=== PATIENT | female | born 1945 | race Caucasian/White ===

== ENCOUNTER 2023-11-03 06:39 | Inpatient (IN) ==
--- NOTE | 2023-02-20 10:20 | PAT Medication Instructions ---
Medication Instructions Date of Service February 20, 2023 Home Medications ascorbic acid (vitamin C) 500 mg tablet (Vitamin C) 500 mg PO QAM aspirin 81 mg capsule 81 mg PO QAM carvedilol 6.25 mg tablet 6.25 mg PO BID ferrous sulfate 325 mg (65 mg iron) tablet (iron) 325 mg PO BID furosemide 20 mg tablet 20 mg PO BID glimepiride 4 mg tablet 2 mg PO QAM omeprazole 40 mg capsule,delayed release 40 mg PO DAILY PRN simvastatin 20 mg tablet 20 mg PO QAM clopidogrel 75 mg tablet 75 mg PO QAM Continue as directed omeprazole 40 mg capsule,delayed release 40 mg PO DAILY PRN(if needed) ASK your prescriber and surgeon aspirin 81 mg capsule 81 mg PO QAM clopidogrel 75 mg tablet 75 mg PO QAM DO NOT take the morning of surgery ascorbic acid (vitamin C) 500 mg tablet (Vitamin C) 500 mg PO QAM ferrous sulfate 325 mg (65 mg iron) tablet (iron) 325 mg PO BID furosemide 20 mg tablet 20 mg PO BID glimepiride 4 mg tablet 2 mg PO QAM Take morning of surgery With a small sip of water, OTHERWISE NOTHING TO EAT OR DRINK AFTER MIDNIGHT: carvedilol 6.25 mg tablet 6.25 mg PO BID simvastatin 20 mg tablet 20 mg PO QAM Take evening before surgery carvedilol 6.25 mg tablet 6.25 mg PO BID ferrous sulfate 325 mg (65 mg iron) tablet (iron) 325 mg PO BID furosemide 20 mg tablet 20 mg PO BID Other Notes If you have any questions please call us at [phone] or [phone] or [phone] or [phone]
--- NOTE | 2023-02-25 08:37 | Anesthesiology Consultation ---
Date of Service February 25, 2023 Assessment & Plan (1) Encounter for pre-operative examination: Plan - surgeon's office notified of anemia status H&H: 09/09 and new bifascicular block: to surgeon's determination on these especially pre-op anemia. - Case including new bifascicular block, LV outflow tract obstruction, high cardiac risk per cardiology 02/24/23 form and bilateral severe carotid disease discussed in detail with Dr. Rogers who advised patient is acceptable to proceed as planned at [facility] without further evaluation or testing from his standpoint. - check BSG and CBC with diff STAT am DOS. - left arm restriction. - difficult IV access. - cardiology clearance 02/24/23: "...moderate to high risk..." - cardiology office note 01/27/23: "...cardiac follow-up...to undergo a CTA of her carotids...blood pressure remains high today I am increasing her carvedilol to 12. 5mg twice daily...last creatinine was 2.0 and her hemoglobin although she remains significantly anemic this has been stable at 9...I anticipate that she is going to need carotid surgery...edema that she had previously has improved since we increased her Lasix to 40 mg...anticipate that she is going to need either a catheter-based procedure for her carotids or a carotid endarterectomy...no chest discomfort or heaviness...renal insufficiency creat inine 2.3 with a GFR of 21...anemia which is not currently explained but she has had 2 sets of transfusions in June and again this past November for hemoglobin of only 7...colonoscopy back in the spring which was negative for a source of bleeding however...part of her mitral valve apparatus which is heavily calcified and immobile and is obstructing the LV outflow tract to some degree...severity of the mitral stenosis is probably moderate...heavy aortic valve calcification but the aortic valve peak velocities are about 3 m/s which argues against significant aortic stenosis also more likely mild aortic stenosis...disease is severe bilaterally...stopped her metformin back in November...suspect that she has primarily diastolic heart failure given the normal LV EF...recommending that she stay on her current dose of Lasix since it has not deteriorated her renal function and we will increase the dose of her beta fede...will see her back again in 2 weeks to reassess her progress...ideally I would like to have her on dual antiplatelet however with her ongoing anemia I am not sure that we should do this as this time...we will review with vascular surgery the issue of her bilateral carotid disease...unfortunately this is not an ideal situation...would not recommend that she undergo cardiac catheterization at this time because of the excess dye load...would not do a Lexiscan on her. Unfortunately she is going to have to assume the risk of any upcoming surgery...done my best to optimize her medically with beta fede and diuretics..." Chart Review Chart Review: Acceptable Risk for Surgery and Patient seen in Pre Admission Testing Teaching & Discussion Pre-Anesthesia Teaching/Discussion Notes: Instructed NPO after midnight before surgery, except medications with 15 cc of water. Medication instructions provided according to the PAT guidelines. History Surgery Operation Date: 03/03/23 08:00 Proposed Procedures p Right Transcarotid Artery Revascularization - Maulik Manzo MD Height/Weight Height: 5 ft 3 in Weight: 75.9 kg Allergies Allergy/AdvReac Type Severity Reaction Status Date / Time cefadroxil Allergy Gastrointestinal Verified 02/20/23 07:45 Upset ciprofloxacin [From Cipro] Allergy hives, Verified 02/20/23 07:45 shortness of breath cortisone Allergy passed out Verified 02/20/23 07:45 digoxin Allergy confusion, Verified 02/20/23 07:45 light headed Iodinated Contrast Media Allergy Gastrointestinal Verified 02/20/23 07:45 Upset lisinopril Allergy confusion, Verified 02/20/23 07:45 light headed silver Allergy Rash Verified 02/20/23 08:08 Sulfa (Sulfonamide Allergy makes her Verified 02/20/23 07:45 Antibiotics) anxious Medications Home Medications Medication Instructions Recorded Confirmed Last Taken ascorbic acid (vitamin C) 500 mg 500 mg PO QAM 02/10/23 02/20/23 Unknown tablet (Vitamin C) aspirin 81 mg capsule 81 mg PO QAM 02/10/23 02/20/23 Unknown carvedilol 6.25 mg tablet 6.25 mg PO BID 02/10/23 02/20/23 Unknown ferrous sulfate 325 mg (65 mg 325 mg PO BID 02/10/23 02/20/23 Unknown iron) tablet (iron) furosemide 20 mg tablet 20 mg PO BID 02/10/23 02/20/23 Unknown glimepiride 4 mg tablet 2 mg PO QAM 02/10/23 02/20/23 Unknown omeprazole 40 mg capsule,delayed 40 mg PO DAILY PRN Acid Reflux 02/10/23 02/20/23 Unknown release simvastatin 20 mg tablet 20 mg PO QAM 02/10/23 02/20/23 Unknown clopidogrel 75 mg tablet 75 mg PO QAM 02/20/23 02/20/23 Unknown Past Medical History Medical History (Updated 02/25/23 @ 11:04 by Sherin Montoya PA-C) Left ventricular outflow tract obstruction Pulmonary hypertension RVSP 44 mmHg Needle phobia Bifascicular block noted on 02/25/23 EKG Renal insufficiency Cr improved since 01/2023 cardio note Syncope hx, last episode 11/2022 attributed to severe anemia per pt-denies additional episodes since transfusion Heart failure EF 70-75% Type 2 diabetes mellitus NIDDM History of blood transfusion 11/2022 Tricuspid regurgitation moderate Severe mitral valve stenosis Aortic stenosis moderate (MALINI 1.5 cm2, mean systolic gradient 19 mmHg); follows with Dr. Cornelius in [place] History of skin cancer 2018, removed from under right side of jaw History of left shoulder fracture 2015, still has "very" limited mobility in this arm/shoulder, no sx to correct-just immobilization Limb alert care status left arm Hx of breast cancer left, dx 2012, s/p surgery + 30 days xrt Hypertension stable per pt Anemia Hgb 9, unknown cause of anemia per cardio records, 7 on pre-op labs Hyperlipidemia GERD (gastroesophageal reflux disease) controlled, stable per pt Patient denies h/o stroke, seizures, heart attack, heart failure, or blood clots/DVTs/PEs. Exercise / Class Metabolic Activity II 4-5 Yardwork/Stairs/Walk up hill (denies chest discomfort or shortness of breath with 1 FOS) Past Surgical History Surgical History Slow to wake up after anesthesia Hx of tooth extraction Hx of colonoscopy History of cardiac cath 2012- no stents Hx of exploratory laparotomy age 21, for removal benign mass and appendix Hx of bilateral cataract extraction History of mastectomy left breast, w/removal 9 lymph nodes; left arm limb restriction Past Anesthesia History Other (slow to wake; cousins also slow to wake) History of PONV No Hx of PONV and No Hx of Motion Sickness Social History Smoking Status: Never smoker Do You Dip or Chew Tobacco: No Hx Alcohol Use: No Hx Substance Use: No substance use type: does not use Review of Systems Snoring, denies witnessed apneas. Patient denies chest pain, shortness of breath, dyspnea on exertion, fever, chills, cough, wheezing, or palpitations. Physical Exam Vital Signs Vitals BP 152/66 P 72 TEMP 97.9 SP02 100% on RA RESP 17 Physical Patient resting comfortably in chair in no acute distress, alert and oriented, responding appropriately throughout visit Full cervical extension range of motion without pain TMD 3.5 finger breadths Mallampati Score 3 Dentition: edentulous Lungs: normal respiratory effort. Good air movement, clear throughout to auscultation, no adventitious breath sounds Cardiac: regular rate and rhythm, 3/6 systolic murmur Lab Results Anesthesia Preop Results Results Anesthesia Widget: WBC 9.15 K/ul (4.8-10.8) 02/25/23 Hgb 7.6 g/dl (12.0-16.0) L 02/25/23 Hct 25.1 % (37.0-47.0) L 02/25/23 Plt 399 K/uL (130-400) 02/25/23 Na 140 mmol/L (136-145) 02/25/23 K 3.5 mmol/L (3.5-5.1) 02/25/23 Cl 103 mmol/L (98-107) 02/25/23 CO2 31 mmol/L (21-32) 02/25/23 BUN 29 mg/dl (6-23) H 02/25/23 Creat 1.77 mg/dl (0.6-1.2) H 02/25/23 Glucose Level 118 mg/dl (70-99(Fasting)) H 02/25/23 PT 11.1 Seconds (9.0-12.0) 02/25/23 PTT 24 Seconds (21-31) 02/25/23 INR 1.0 (0.9-1.1) 02/25/23 HA1c 6.4 % (4.5-5.6) H 02/25/23 Blood Type A Positive 02/25/23 Antibody Screen NEGATIVE 02/25/23 Testing Electrocardiogram Date: 02/25/23 Sinus rhythm with premature atrial complexes, rate 77 bpm RBBB Left anterior fascicular block bifascicular block Chest X-Ray Date: 02/25/23 Nonspecific interstitial thickening is likely chronic. Foci of parenchymal s carring are seen throughout both lungs. No airspace consolidation typical for pneumonia or pleural effusion is identified. There is no pneumothorax. The skeletal structures are osteopenic. There is chronic deformity of the left shoulder. Degenerative change is seen in the spine. Surgical clips are noted in the left axilla. IMPRESSION: Cardiomegaly with no active disease in the chest. Echocardiogram Date: 12/30/22 EF 70-75% Mild cLVH Near cavity obliteration in systole Normal LV wall motion Outflow tract shows mild obstruction and a velocity flow profile with aliasing and increased velocity, suggestive of obstruction. Mildly dilated RV RVSP 44 mmHg Severely calcified mitral valve annulus, leaflets are mildly calcified There is a dentist which appears to be part of the mitral valve sub apparatus that is heavily calcified and projects into the LV outflow tract gradient. This density is immobile and does not move. The findings are consistent with moderate to severe stenosis. There is moderate regurgitation Moderate aortic stenosis (MALINI 1.5 cm2, mean systolic gradient 19 mmHg) Moderate tricuspid regurgitation Other Testing Neck CTA 02/10/23 1. Study degraded by motion artifact. 2. Atherosclerosis of the carotid bulbs and proximal cervical segments of the internal carotid arteries results in high-grade stenosis bilaterally, right greater than left.
[~2023-11-03 06:39] MED LIST: CLINDAMYCIN/D5W 900 MG/50 ML BAG IV SCH; LACTATED RINGER'S 1,000 ML BAG IV SCH; SODIUM CHLORIDE 0.9% 250 ML IV PRN
--- OUTSIDE RECORDS SUMMARY | 2023-11-03 06:55 | External Medical Summary | Continuity of Care Document ---
Author Name Unknown Organization [facility] [address] [facility] Address [address] [place], [place] [id number] Care Team Providers Care Refining Engineer Name Role Phone London Garrison Primary Care Physician [phone] [id number] Date(s): 10/21/23 - 10/21/23 [facility] [address], [address] [place] [phone] Encounter Diagnosis Preop cardiovascular exam(Discharge Diagnosis) - 10/21/23 Aortic valve stenosis(Discharge Diagnosis) - 10/21/23 Bilateral carotid artery stenosis(Discharge Diagnosis) - 10/21/23 Diastolic heart failure(Discharge Diagnosis) - 10/21/23 Anemia(Discharge Diagnosis) - 10/21/23 Mitral valve stenosis(Discharge Diagnosis) - 10/21/23 Discharge Disposition: Home or Self Care Attending Physician: DO Cornelius Michelle L Allergies, Adverse Reactions, Alerts Substance Criticality Severity Reaction Reaction Severity Status ciprofloxacin Rash Dyspnea Active cefadroxil Dizziness Active contrast media (iodine-based) SARINA - acute kidney injury Gastrointestinal upset Active digoxin Photophobia Dizziness Active cortisone Syncope Active lisinopril unknown Active sulfa drugs Insomnia Shaking Active Assessment and Plan Extracted from: Title:Cardiology Office Visit Note Author:DO Cornelius Michelle L Date:10/21/23 1.Preop cardiovascular exa m 2.Aortic valve stenosis Moderate with heavy mitral annular calcification 3.Bilateral carotid artery stenosis 4.Diastolic heart failure 5.Anemia 6.Mitral valve stenosis On the basis of heavy mitral annular calcification Her cardiovascular risk is considered to be intermediateto perhaps high.Her overall EF on the last ECHO from Dec 2022 was 70% with moderate and heavy MAC with moderate MS. She has not had angina. Her ECG today shows RBBB with LAHB similar to her prior ECG. I will see her back in November for a repeat ECHO.I will also be available around the time of her surgeryper your request. Continue aspirin and beta-fede perioperatively. Medications Aspir 81 oral delayed release tablet Start: 01/22/23 9:26:00 AM EST, 1 tab, PO, Daily Start Date: 01/22/23 Status: Ordered Brilinta (ticagrelor) 90 mg oral tablet Start: 10/12/23 3:54:00 PM EDT, 1 tab, PO, bid, Disp# 60 tab, Refills: 11, [facility] Start Date: 10/12/23 Status: Ordered carvedilol 12.5 mg oral tablet 1 tab, PO, bid, TAKE ONE TABLET BY MOUTH TWICE DAILY Start Date: 10/21/23 Status: Ordered furosemide 40 mg oral tablet 1 tab, PO, Daily, TAKE ONE TABLET BY MOUTH DAILY Start Date: 10/21/23 Status: Ordered glimepiride 4 mg oral tablet Start: 01/22/23 9:25:00 AM EST, 0.5 tab, PO, Daily Start Date: 01/22/23 Status: Ordered Mucomyst-20 for nebulization Start: 01/22/23 9:58:00 AM EST, See Instructions, Disp# 12 mL, Refills: 0, 600 mg PO Take BID starting at 6pm evening before procedure/study., Note to Pharmacy: Dispense 4 doses of 600 mg, [facility]acy[facility] Start Date: 01/22/23 Status: Ordered omeprazole 40 mg oral delayed release capsule Start: 01/22/23 9:26:00 AM EST, 1 cap, PO, Daily, as needed Start Date: 01/22/23 Status: Ordered Procrit 10,000 units/mL injectable solution Start: 10/21/23 10:19:00 AM EDT, See Instructions, unsure of dose. subQ q7days Start Date: 10/21/23 Status: Ordered simvastatin 20 mg oral tablet 1 tab, PO, qPM, TAKE ONE TABLET BY MOUTH DAILY Start Date: 01/22/23 Status: Ordered Vitamin C 500 mg oral capsule Start: 01/22/23 9:26:00 AM EST, 1 cap, PO, Daily Start Date: 01/22/23 Status: Ordered Mental Status 10/21/23 Barriers to Learning one year None evide nt Mandatory Health Literacy Documentation Yes Health Literacy Communication Barriers N ever Primary Language Bermudian Problem List Condition Confirmation Course Effective Dates Status H ealth Status Informant Anemia Confirmed Active Aortic valve stenosis Confirmed Active Bilateral carotid artery stenosis Confirmed Active Diastolic heart failure Confirmed Active Hypertension Confirmed Active Mitral valve stenosis Confirmed Active Renal insufficiency Confirmed Active RBBB Confirmed Active Type 2 diabetes mellitus Confirmed Active Diagnosis Diagnosis Type Effective Dates Health Status Clinical Service Informant Bilateral carotid artery stenosis Discharge Diagnosis 10/21/23 Non-Specified Anemia Discharge Diagnosis 10/21/23 Non-Specified Mitral valve stenosis Discharge Diagnosis 10/21/23 Non-Specified Preop cardiovascular exam Discharge Diagnosis 10/21/23 Non-Specified Diastolic heart failure Discharge Diagnosis 10/21/23 Non-Specified Aortic valve stenosis Discharge Diagnosis 10/21/23 Non-Specified Vital Signs Most recent to oldest [Reference Range]: 1 Patient Weight 76.5 kg (10/21/23 10:31 AM) Heart Rate 88 bpm (10/21/23 10:31 AM) Respiratory Rate 18 br/min (10/21/23 10:31 AM) Blood Pressure 138/58mmHg (10/21/23 10:31 AM) Cuff Pulse Pressure 80 mmHg (10/21/23 10:31 AM) Social History Social History Type Response Smoking Status Never smoked cigaret debra Sex Female Sex Representation Female (finding) Cardiology * Contributor_system, [id number]: VERIFY, PERFORM Event Display: EKG Authored Date: Please click on link to see image. Cardiology Outpatient Note * DO Cornelius Michelle L: PERFORM Event Display: Cardiology Outpt Note Authored Date: Primary Care Provider MD Bladimir, London Smith Referring Provider Dr. Maulik Manzo Reason for Consultation Preop cardiovascular clearance Chief Complaint pt here for cardiology visit prior to tcar (11/02). denies chest pain or swelling. History of Present Illness [place] a78 yearoldEmilie is here forpreop cardiac evaluation for bilateral severe carotid disease. I started seeing Eleanorbrendan a year agofor cardiac evaluationin December2022 where she was found to havesevere carotid disease. We have had difficultygetting her cleared due to her multiplecomorbid medical conditions includingsevere iron deficiencywithsevere anemiaas well aschronic renal insufficiency. She is a longstanding diabetic witha creatinine of 2.3her previous GFR was estimated to be at 21her most recent echo shows overallnormal LV systolic function however she has a moderate amount ofaortic stenosis as well as mitral stenosis on the basis of severemitral annular calcification. Shehas undergoneGI evaluation with colonoscopyto look for source of bleeding however there was no etiology toin the severe anemia. Thpotentially high risk candidate. . She reports having had aheart murmur for more than 20 yearsbut has never hadan echo up until the 1 we did in 2022. She has aremote history of breast cancer with mastectomy back in 2013 [id number] radiation treatments after hersurgery. Amazingly she denies chest discomfort heaviness pressure tightness or shortness of breath with herusual activities. She is finally scheduled toundergo her surgical procedure with Dr. Templeton 17. From a cardiovascular standpoint she is considered to berumen intermediate to moderately high risk candidate. Unfortunatelygiven hersignificant renal insufficiencyas well as severe bilateral carotid diseasediagnostic testing at this point is extremely limited. Because sandeepoes not have symptomsshe is being clearedfrom a cardiovascular standpointat an intermediate tohigh risk candidate forTCAR.She understands that hermultiple comorbid medical conditionswouldpreclude further cardiac testing at this time particularly given her renal insufficiencyandiron deficiency anemia. Her EKG was done today and there are no new changes. She was given a copy of her EKGto take to the hospital for her otherpreopblood work that is scheduled. I will follow-up with her after her surgery. I anticipate that she will have her right carotid doneafter she has recovered from the leftcarotid.I will also be availablearound the time of her surgery if need be for anyquestions or problems. She was instructed to stay on her aspirin as wellas her carvedilol perioperatively. She should not stop either of these medications. Review of Systems General: no fevers, chills, weight loss of gain HEENT: no changes in vision or hearing; no recent falls or head trauma Cardiac: No other symptoms other than reported in HPI Pulmonary: No symptoms other than reported in HPI Abdomen: No changes in bowel habits, nausea, vomiting, no BRBPR : no changes in urine frequency Extremities: no edema or claudication Physical Exam Vitals & Measurements HR:88(Monitored) RR:18 BP:138/58 SpO2:98% WT:76.5kg WT:76.500kg(Dosing) Patient is awake alert and oriented x3and in no acute distress HEENT:2+ carotid upstrokes, bilateral carotid bruits noted LUNGS:Clear to auscultation bilaterally no rales rhonchi or wheezing HEART:Regular rate and rhythmsystoliccrescendo decrescendo murmurA2 is still appreciated ABDOMEN:Soft nontender nondistended positive bowel sounds EXTREMITIES:No evidence of clubbing cyanosis or edema PSYCHIATRIC:Patients affect appeared appropriate EKG Normal sinus rhythm right bundle branch block left anterior hemiblock Assessment/Plan 1.Preop cardiovascular exam 2.Aortic valve stenosis Moderate with heavy mitral annular calcification 3.Bilateral carotid artery stenosis 4.Diastolic heart failure 5.Anemia 6.Mitral valve stenosis On the basis of heavy mitral annular calcification Her cardiovascular risk is considered to be intermediateto perhaps high.[facility] 70% with moderate and heavy MAC with moderate MS. She has not had angina. Her ECG today shows RBBB with LAHB similar to her prior ECG. I will see her back in November for a repeat ECHO.I will also be available around the time of her surgeryper your request. Continue aspirin and beta-fede perioperatively. Problem List/Past Medical History Ongoing Anemia Aortic valve stenosis Bilateral carotid artery stenosis Diastolic heart failure Hypertension Mitral valve stenosis RBBB Renal insufficiency Type 2 diabetes mellitus Cardiac History Moderate aortic stenosis Heavy mitral annular calcificationwithsome degree of mitral stenosis Right bundle branch block left anterior hemiblock Medications acetylcysteine(Mucomyst-20 for nebulization), See Instructions ascorbic acid(Vitamin C 500 mg oral capsule), 500 mg= 1 cap, PO, Daily aspirin(Aspir 81 oral delayed release tablet), 81 mg= 1 tab, PO, Daily carvedilol(carvedilol 12.5 mg oral tablet), 12.5 mg= 1 tab, PO, bid epoetin amber(Procrit 10,000 units/mL injectable solution), See Instructions furosemide(furosemide 40 mg oral tablet), 40 mg= 1 tab, PO, Daily glimepiride(glimepiride 4 mg oral tablet), 2 mg= 0.5 tab, PO, Daily omeprazole(omeprazole 40 mg oral delayed release capsule), 40 mg= 1 cap, PO, Daily simvastatin(simvastatin 20 mg oral tablet), 20 mg= 1 tab, PO, qPM ticagrelor(Brilinta (ticagrelor) 90 mg oral tablet), 90 mg= 1 tab, PO, bid, 11 refills Allergies cefadroxilDizziness ciprofloxacinRash, Dyspnea contrast media (iodine-based)SARINA - acute kidney injury, Gastrointestinal upset cortisoneSyncope digoxinPhotophobia, Dizziness lisinoprilunknown sulfa drugsInsomnia, Shaking Social History Smoking Status Never smoked cigarettes Family History Cardiovascular disease: Mother and Father. Hypertension: Mother and Father. Health Status Family Member(s) Electronic Signature on File CC: London Garrison MD [address] [place] [id number] * CC: Maulik Manzo MD [address] [place] [address] Electronically Reviewed/Signed by: Chrissy Cornelius DO Author Signature Dt/Tm:10/21/2023 06:43 PM Division of General Cardiology MLS Patient Care team information Care Team Personnel Name: RAND Townsend Lynn Position: Physician Rn Utilization Management Um Exempt - Vasc Surg Member Role: Lifetime Relationship Address: [address] [place] [id number] [place] Name: MD Bladimir, London Smith Position: Referring Member Role: Primary Care Provider Address: [address] [place] [address] [place] [address]
[2023-11-03 07:23] LABS: Basophils # (auto) 0.09 K/uL (0.00-0.20); Basophils % (auto) 0.6 %; Eosinophils # (auto) 0.19 K/uL (0.00-0.50); Eosinophils % (auto) 1.2 %; Hematocrit (blood only) 34.5 % (37.0-47.0); Immature Granulocytes # (auto) 0.13 K/uL (0.01-0.20); Immature Granulocytes % (auto) 0.8 %; Lymphocytes # (auto) 2.52 K/uL (1.20-3.40); Lymphocytes % (auto) 15.5 %; Mean Corpuscular Hemoglobin 24.4 pg (25.0-34.0); Mean Corpuscular Volume 84.4 fL (80.0-100.0); Mean Platelet Volume 8.5 fL (9.4-12.4); Monocytes # (auto) 1.38 K/uL (0.11-0.59); Monocytes % (auto) 8.5 %; Neutrophils # (auto) 11.95 K/uL (1.40-6.50); Neutrophils % (auto) 73.4 %; Platelet Count 458 K/uL (130-400); RDW Coefficient of Variation 16.6 % (11.5-14.5); RDW Standard Deviation 50.5 fL (36.4-46.3); Red Blood Count 4.09 M/uL (4.20-5.40); White Blood Count 16.26 K/ul (4.8-10.8)
--- NOTE | 2023-11-03 07:40 | History & Physical Report ---
Date of Service November 03, 2023 History of Present Illness Primary Care Provider: London Garrison Chief Complaint rm#2 post CTA discussion regarding carotids Subjective Plan plan of seeing Lanre for follow-up. As you know she is a 78-year-old female who has severe stenosis of her bilateral internal carotid arteries. She is approximately 80% plus on the left and 90% plus on the right. She is asymptomatic from both lesions. She does have a chronic anemia and being worked up by hematology. She has had 6 transfusions this year. Her hemoglobin still lives in the 8 range. At that that level she is still asymptomatic. Objective Vitals & Measurements HR: 75 (Monitored) BP: 118/54 SpO2: 97% Physical Exam On exam today she is awake alert oriented x 3. She is in no apparent distress. Her blood pressure is 118/54. Her radial carotids are +2 bilaterally. Femorals are +2 bilaterally. She has good capillary refill Upper extremity with good blanching of the finger nailbeds. She is slightly on the pale side however her lip and conjunctiva are pink. Lungs are clear. Heart has a RRR. Abominal exam is benign. Neuro exam is intact. Diagnostic Results Ultrasound today shows both internal carotid arteries to be patent but severely stenotic. Assessment/Plan 1. Bilateral carotid artery stenosis We went over the risks options benefits of TCAR versus endarterectomy. These are documented in the consent form she is elected to go ahead with a TCAR due to the less risk of any bleeding from this procedure. He said being her hemoglobins are in the 8 range transfuse her 1 unit of blood preoperatively before her TCAR procedure. Patient and her understood the risks options benefits and agreed to go ahead with TCAR procedure. She will be seen by her costumed character entertainer for clearance prior to her surgical procedure. Thank you very much for letting us participate in the care of this patient. Thank you very much for letting us participate in the care of this patient. Sincerely, Rasheeda Manzo MD Attestation I have personally spent ___27__ minutes performing [id number] and gjj-[id number] activities on this date of service. Activities Include: _x_ review of the medical record _x_ obtaining a history __x physical exam/evaluation __ review labs __ review radiology reports _x_ counseling/educating patient/family/caregiver __ discussion/referral to other healthcare professional _x_ documenting care in the medical record __ independent interpretation of results __ communication of results to patient/family/caregiver __ coordination of care Signature Line Electronic Signature on File Maulik Manzo MD Author Signature Dt/Tm: 10/12/2023 04:09 PM Advertising Sales Agent Johan Ruelas [facility] [place] [address] [facility] [place], [address] [place] [address] EJS Result Type: .Outpt Ltr Date of Service: October 12, 2023 16:03 EDT Authorization Status: Final Subject: Follow Up Visit Author or Import Date: MD Manzo Eugene J on October 12, 2023 16:09 EDT Verified By: MD Manzo Eugene J on October 12, 2023 16:09 EDT Encounter info: [id number], [facility], Clinic, 10/12/2023 - 10/12/2023 Allergies Allergy/AdvReac Type Severity Reaction Status Date / Time cefadroxil Allergy Gastrointestinal Verified 11/03/23 07:29 Upset ciprofloxacin [From Cipro] Allergy hives, Verified 11/03/23 07:29 shortness of breath cortisone Allergy passed out Verified 11/03/23 07:29 digoxin Allergy confusion, Verified 11/03/23 07:29 light headed Iodinated Contrast Media Allergy Gastrointestinal Verified 11/03/23 07:29 Upset lisinopril Allergy confusion, Verified 11/03/23 07:29 light headed silver Allergy Rash Verified 11/03/23 07:29 Sulfa (Sulfonamide Allergy makes her Verified 11/03/23 07:29 Antibiotics) anxious Home Medications Medication Instructions Recorded Confirmed Type ascorbic acid (vitamin C) 500 mg 500 mg PO QAM 02/10/23 11/03/23 History tablet (Vitamin C) aspirin 81 mg capsule 81 mg PO QAM 02/10/23 11/03/23 History carvedilol 6.25 mg tablet 6.25 mg PO BID 02/10/23 11/03/23 History glimepiride 4 mg tablet 2 mg PO QAM 02/10/23 11/03/23 History omeprazole 40 mg capsule,delayed 40 mg PO DAILY PRN Acid Reflux 02/10/23 11/03/23 History release simvastatin 20 mg tablet 20 mg PO QAM 02/10/23 11/03/23 History Brilinta 1 dose PO UD 10/22/23 11/03/23 History furosemide 40 mg tablet (Lasix) 40 mg PO QAM 10/22/23 11/03/23 History Past Med/Surg History Problem List Encounter for pre-operative examination Medical History Aplastic anemia following with Dr. 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 Cornelius Renal insufficiency Cr improved since 01/2023 cardio note Syncope hx, last episode 11/2022 attributed to severe anemia per pt-denies additional episodes since transfusion Heart failure EF 70-75% Type 2 diabetes mellitus NIDDM History of blood transfusion 11/2022, most recent 06/2023 Tricuspid regurgitation moderate Severe mitral valve stenosis Aortic stenosis moderate (MALINI 1.5 cm2, mean systolic gradient 19 mmHg); follows with Dr. Cornelius in [place] History of skin cancer 2018, removed from under right side of jaw History of left shoulder fracture 2015, still has "very" limited mobility in this arm/shoulder, no sx to correct-just immobilization Limb alert care status left arm Hx of breast cancer left, dx 2012, s/p surgery + 30 days xrt Hypertension stable per pt Anemia Hgb 9.7, unknown cause of anemia per cardio records, 7 on pre-op labs -- following with Dr. Mckinley Hyperlipidemia GERD (gastroesophageal reflux disease) controlled, stable per pt Surgical History Slow to wake up after anesthesia Hx of tooth extraction Hx of colonoscopy History of cardiac cath 2012- no stents Hx of exploratory laparotomy age 21, for removal benign mass and appendix Hx of bilateral cataract extraction History of mastectomy left breast, w/removal 9 lymph nodes; left arm limb restriction Family History (Updated 10/22/23 @ 11:40 by Umu Hendricks RN) Sister Family history of reaction to anesthesia "slow to wake up" Family/Other Family history of reaction to anesthesia cousin - "slow to wake up" Social History Smoking Status: Never smoker Second Hand Exposure: No; Do You Dip or Chew Tobacco: No; Tobacco Cessation Education Requested by Patient: No Hx Alcohol Use: No Hx Substance Use: No Preferred Language: Malay Communication Ability: Effective Automotive Product Specialist Required: No Beliefs That Will Affect Care: None Current Living Situation: Significant Other Other Information That Helps Us Care for You: No Feels Safe at Home: Yes Safety Concerns: Feels Safe At This Time Assistive Devices: Denture - Upper, Denture - Lower and Glasses
--- NOTE | 2023-11-03 07:41 | History & Physical Bridge Note ---
Date of Service November 03, 2023 History & Physical Bridge Note I have examined the patient, reviewed the History & Physical and in the interval since the performance of the History & Physical I have noted the following changes of clinical significance: no changes noted
--- NOTE | 2023-11-03 07:43 | History & Physical Report ---
Date of Service November 03, 2023 Assessment & Plan (1) Carotid stenosis, bilateral: Plan: We went over the risks options benefits of TCAR versus endarterectomy. These are documented in the consent form she is elected to go ahead with a TCAR due to the less risk of any bleeding from this procedure. He said being her hemoglobins are in the 8 range transfuse her 1 unit of blood preoperatively before her TCAR procedure. Patient and her understood the risks options benefits and agreed to go ahead with TCAR procedure. History of Present Illness Chief Complaint: Bilateral carotid artery stenosis Primary Care Provider: London Garrison I had the pleasure of seeing Lanre for follow-up. As you know she is a 78-year-old female who has severe stenosis of her bilateral internal carotid arteries. She is approximately 80% plus on the left and 90% plus on the right. She is asymptomatic from both lesions. She does have a chronic anemia and being worked up by hematology. She has had 6 transfusions this year. Her hemoglobin still lives in the 8 range. At that that level she is still asymptomatic. Allergies Allergy/AdvReac Type Severity Reaction Status Date / Time cefadroxil Allergy Gastrointestinal Verified 11/03/23 07:29 Upset ciprofloxacin [From Cipro] Allergy hives, Verified 11/03/23 07:29 shortness of breath cortisone Allergy passed out Verified 11/03/23 07:29 digoxin Allergy confusion, Verified 11/03/23 07:29 light headed Iodinated Contrast Media Allergy Gastrointestinal Verified 11/03/23 07:29 Upset lisinopril Allergy confusion, Verified 11/03/23 07:29 light headed silver Allergy Rash Verified 11/03/23 07:29 Sulfa (Sulfonamide Allergy makes her Verified 11/03/23 07:29 Antibiotics) anxious Home Medications Medication Instructions Recorded Confirmed Type ascorbic acid (vitamin C) 500 mg 500 mg PO QAM 02/10/23 11/03/23 History tablet (Vitamin C) aspirin 81 mg capsule 81 mg PO QAM 02/10/23 11/03/23 History carvedilol 6.25 mg tablet 6.25 mg PO BID 02/10/23 11/03/23 History glimepiride 4 mg tablet 2 mg PO QAM 02/10/23 11/03/23 History omeprazole 40 mg capsule,delayed 40 mg PO DAILY PRN Acid Reflux 02/10/23 11/03/23 History release simvastatin 20 mg tablet 20 mg PO QAM 02/10/23 11/03/23 History Brilinta 1 dose PO UD 10/22/23 11/03/23 History furosemide 40 mg tablet (Lasix) 40 mg PO QAM 10/22/23 11/03/23 History Past Med/Surg History Problem List (Updated 11/03/23 @ 07:45 by Maulik Manzo MD) Carotid stenosis, bilateral Encounter for pre-operative examination Medical History Aplastic anemia following with Dr. 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 Cornelius Renal insufficiency Cr improved since 01/2023 cardio note Syncope hx, last episode 11/2022 attributed to severe anemia per pt-denies additional episodes since transfusion Heart failure EF 70-75% Type 2 diabetes mellitus NIDDM History of blood transfusion 11/2022, most recent 06/2023 Tricuspid regurgitation moderate Severe mitral valve stenosis Aortic stenosis moderate (MALINI 1.5 cm2, mean systolic gradient 19 mmHg); follows with Dr. Cornelius in [place] History of skin cancer 2018, removed from under right side of jaw History of left shoulder fracture 2015, still has "very" limited mobility in this arm/shoulder, no sx to correct-just immobilization Limb alert care status left arm Hx of breast cancer left, dx 2012, s/p surgery + 30 days xrt Hypertension stable per pt Anemia Hgb 9.7, unknown cause of anemia per cardio records, 7 on pre-op labs -- following with Dr. Mckinley Hyperlipidemia GERD (gastroesophageal reflux disease) controlled, stable per pt Surgical History Slow to wake up after anesthesia Hx of tooth extraction Hx of colonoscopy History of cardiac cath 2012- no stents Hx of exploratory laparotomy age 21, for removal benign mass and appendix Hx of bilateral cataract extraction History of mastectomy left breast, w/removal 9 lymph nodes; left arm limb restriction Family History Sister Family history of reaction to anesthesia "slow to wake up" Family/Other Family history of reaction to anesthesia cousin - "slow to wake up" Social History Smoking Status: Never smoker Second Hand Exposure: No; Do You Dip or Chew Tobacco: No; Tobacco Cessation Education Requested by Patient: No Hx Alcohol Use: No Hx Substance Use: No Preferred Language: Romansh Communication Ability: Effective Meals On Wheels Driver Required: No Beliefs That Will Affect Care: None Current Living Situation: Significant Other Other Information That Helps Us Care for You: No Feels Safe at Home: Yes Safety Concerns: Feels Safe At This Time Assistive Devices: Denture - Upper, Denture - Lower and Glasses Review of Systems All systems reviewed & are unremarkable except as noted in HPI & below Physical Exam Physical Exam: On exam today she is awake alert oriented x 3. She is in no apparent distress. Her blood pressure is 118/54. Her radial carotids are +2 bilaterally. Femorals are +2 bilaterally. She has good capillary refill. Upper extremity with good blanching of the finger nailbeds. She is slightly on the pale side however her lip and conjunctiva are pink. Lungs are clear. Heart has a RRR. Abominal exam is benign. Neuro exam is intact. Code Status & VTE Plan VTE Prophylaxis Plan VTE Prophylaxis will be ordered: Yes
[2023-11-03] MEDS: LACTATED RINGER'S 1,000 ML BAG IV SCH (07:58)
[2023-11-03] MEDS ORDERED: ePHEDrine sulfate 50 MG/ML AMP IV PRN (09:22)
[2023-11-03] MEDS ORDERED: HYDROmorphone INJ 1 MG/ML SYRINGE IV PRN (09:22)
[2023-11-03] MEDS ORDERED: fentaNYL citrate PF 100 MCG/2 ML VIAL IV PRN (09:22)
[2023-11-03] MEDS ORDERED: ATROPINE SULFATE 0.1 MG/ML 10ML SYR IV PRN (09:22)
[2023-11-03] MEDS ORDERED: ONDANSETRON INJ 2 MG/ML 2 ML VIAL IV PRN (09:22)
[2023-11-03] MEDS ORDERED: fentaNYL citrate PF 100 MCG/2 ML VIAL ONE ×2 (09:27→10:35)
[2023-11-03] MEDS: HYDROCORTISONE SOD 100 MG in SYRINGE 0 ML IV STA (10:48)
[2023-11-03] MEDS: HYDROCORTISONE SOD SUCCINATE 100 MG/2 ML VIAL ONE (10:48)
[2023-11-03] MEDS: CLINDAMYCIN/D5W 900 MG/50 ML BAG IV SCH (10:58)
[2023-11-03] MEDS ORDERED: PROPOFOL IV EMULSION 10 MG/ML 20 ML VIAL IV ONE (11:26)
[2023-11-03] MEDS ORDERED: ROCURONIUM BROMIDE 10 MG/ML 5 ML VIAL IV ONE (11:26)
[2023-11-03] MEDS ORDERED: ONDANSETRON INJ 2 MG/ML 2 ML VIAL ONE (11:27)
[2023-11-03] MEDS ORDERED: GLYCOPYRROLATE 0.2 MG/ML VIAL ONE (11:27)
[2023-11-03] MEDS ORDERED: PHENYLEPHRINE HCL 10 MG/ML VIAL ONE (11:27)
[2023-11-03] MEDS ORDERED: ePHEDrine sulfate 50 MG/5 ML SYR ONE (11:27)
--- NOTE | 2023-11-03 11:40 | Anesthesia Procedure Note ---
Anesthesia Procedure Note Arterial Line Note Patient medical history, medications, allergies and vitals reviewed. Date of procedure: 11/03/23 Consent: Risk / Benefits Reviewed With: PT / POA / Parent / Guardian, Accepts Plan, Informed Consent Obtained and All Questions Answered Monitors attached: Blood Pressure, CO2, EKG and Pulse Oximetry Time out completed: Yes Premedication: Fentanyl (mcg) (100) Laterality: Right Location: Brachial (attempted radial first) Hand hygeine: Soap and water and Alcohol based hand rub Equipment/Supplies: Cap, Mask and Sterile gloves Skin prep: Chloraprep Local medication: 1% Lidocaine (ml) Ultrasound used: Yes US equipment and supplies: Sterile Gel and Sterile Probe Cover Attempts: Multiple Procedure Summary: 20 gauge angiocath advanced until return of bright red blood. Catheter threaded using seldinger technique with return of pulsatile, bright red blood. Catheter secured with tape and covered with occlusive dressing. Waveform consistent with correct arterial placement. After placement, normal perfusion was observed distal to the site of catheter placement. Post-Procedure: Pt hemodynamically stable, Pt tolerates well and No complication Anesthesia Charges Arterial Line A Line Charges: 75825 Insert Art line Samp/Mon/Pruett
[2023-11-03] MEDS ORDERED: ePHEDrine sulfate 50 MG/ML AMP ONE (11:55)
[2023-11-03] MEDS ORDERED: HEPARIN SOD (PORCINE) 1000 UNIT/ML ONE (11:58)
[2023-11-03] MEDS ORDERED: PROTAMINE SULFATE 10 MG/ML 5 ML VIAL IV ONE (11:58)
[2023-11-03] MEDS ORDERED: SUGAMMADEX SODIUM 200 MG/2 ML VIAL IV ONE (12:06)
--- NOTE | 2023-11-03 12:07 | Post Operative Brief Note ---
Immediate Post Op Note Date of Surgery November 03, 2023 Pre & Post Diagnosis Operation Date: 11/03/23 10:10 Pre-Op Diagnosis: Bilateral Carotid stenosis Post-Op Diagnosis: Bilateral Carotid stenosis I identified the patient and participated in the time-out.: Yes Procedure Operation Date: 11/03/23 10:10 Actual Procedures p Right Transcarotid Artery Revascularization, ultrasound left common femoral vein (Right) - Maulik Manzo MD Surgeon Maulik Manzo MD Sales Department Manager MD Kristian GonzalesMinarchick,PAC Estimated Blood Loss 10 Findings Consistent with Post-Op Diagnosis Anesthesia Type General Complications none Disposition Accompanied Patient To Recovery: No Disposition: Recovery Room
--- NOTE | 2023-11-03 12:21 | Operative Report ---
Post Operative Report Pre & Post Diagnosis Operation Date: 11/03/23 10:10 Pre-Op Diagnosis: Bilateral Carotid stenosis Asymptomatic, pre-occlusive right carotid artery stenosis Post-Op Diagnosis: Bilateral Carotid stenosis Asymptomatic, pre-occlusive right carotid artery stenosis I identified the patient and participated in the time-out.: Yes Procedure Operation Date: 11/03/23 10:10 Actual Procedures p Right Transcarotid Artery Revascularization, ultrasound left common femoral vein (Right) - Maulik Manzo MD Surgeon Maulik Manzo MD Fruit And Vegetable Classer MD Janet; Elena Townsend,VERO Estimated Blood Loss 10 Findings See Below Patient had severe, almost occlusive right carotid artery stenosis with a diminutive right external carotid artery. We were able to cross the lesion and there was significant improvement after balloon angioplasty and stent placement. There was good wall apposition of the stent with improved blood flow and no areas of significant stenosis visualized on completion angiogram. Specimens None Drains None Anesthesia Type General Complications None Disposition Accompanied Patient To Recovery: Yes Indications 78 year old female with history of asymptomatic, near occlusive right carotid artery stenosis who presented for transcarotid artery revascularization (TCAR). After discussion of risks versus benefits of the procedure, patient consented to the operation. Description of Procedure The patient was brought to the operating room, where lines were placed and general anesthesia was accomplished by anesthesia team. A shoulder roll was placed and the neck was rotated towards the left side of the patient. The right neck and bilateral groins were prepped and patient was draped in the usual sterile fashion. A timeout was performed identifying the correct patient by name, procedure, and location of procedure and all were in agreement. A 3cm transverse incision was made between the sternal and clavicular heads of the sternocleidomastoid muscle. The muscle heads were retracted to each side and the carotid sheath was identified. Using blunt dissection, the carotid sheath was opened and 3cm of common carotid artery (CCA) were isolated. Umbilical tape was placed around the proximal CCA under direct visualization. A 5-0 prolene U-stitc h was pre-placed in the anterior wall of the CCA to facilitate hemostasis after removal of the arterial sheath at completion of the procedure. The patient was given 8,000 units of IV heparin. The contralateral (left) common femoral vein was accessed under ultrasound guidance, using an access needle, and a wire and sheath were placed using modified Seldinger technique. The venous return sheath was advanced into the common femoral vein over the 0.035" wire. Blood was aspirated from the flow line and the sheath was flushed with heparinized saline.The sheath was secured to the patient's skin with a 2-0 silk stitch to maintain position in the vessel. ACT was below 250 seconds and we gave an additional 2,000 units of IV heparin. We then turned our attention back to the neck. A 4-Georgian non-stiffened micropuncture set was used, puncturing the common carotid artery with a 21G needle through the pre-placed U-stitch while holding gentle traction on the umbilical tape to stabilize the CCA within the incision. The micropuncture wire was advanced 3-4cm into the CCA and the 21G needle removed. The micropuncture sheath was advanced 3cm into the CCA and the wire and dilator were removed. A cerebral angiogram was obtained after ensuring there were no air bubbles in the system. The J-tipped guidewire was inserted and we stopped short of the lesion at the level of the common carotid artery. After micropuncture sheath removal, the transcarotid arterial sheath was advanced to the 3cm marker and the 0.035" wire and dilator were removed. Arterial sheath position was assessed under fluoroscopy. The arterial sheath was sutured to the patient at two sites. The Flow Controller was connected to the transcarotid arterial sheath, prepared by passively allowing arterial blood to backfill the line and then it was connected to the venous return sheath. We obtained a repeat cerebral angiogram to visualize the area we intended to treat. The CCA was clamped proximally with a Nile tourniquet to ensure active flow reversal. Heparinized saline was delivered into the venous flow line to confirm adequate flow reversal. A TCAR timeout was performed, heart rate was >70bpm and systolic BP was >140mmHg. Patient had been pretreated with glycopyrrolate and atropine was available. The lesion was crossed with an 0.014" guidewire and pre-dilation balloon angioplasty was performed with a 5.5x25mm [employer] rapid exchange balloon to 14 atmospheres for about 3 seconds. A 9-7x40mm ENROUTE transcarotid stent was placed. Post- dilation balloon angioplasty was performed with a 6x25mm [employer] rapid exchange balloon to 12 atmospheres for about 3 seconds. A completion angiogram was performed showing appropriate stent position with good wall apposition. At TCAR case completion, antegrade flow was restored by releasing the tourniquet on the CCA and closing the stopcocks to the flow lines. The total clamp time was 10 minutes. The transcarotid arterial sheath was removed and the pre-placed suture was tied. 25mg of protamine were given. A repeat ACT was obtained and was 165. The venous return sheath was removed and hemostasis achieved with manual compression. The neck incision was irrigated with normal saline solution and was hemostatic before closure.20cc of 0.5% marcaine with epinephrine were used for local anesthesia around skin edges. The platysma was approximated with 3-0 Vicryl running suture and the skin was closed with 4-0 running Vicryl suture and covered with Dermabond. The patient tolerated the procedure well and was extubated in the operating room. She was moving all four extremities to command prior to transfer to the recovery room. All counts were correct at the end of the procedure. Fluoroscopy time was 2.5minutes, radiation dose was 21mGy and 12cc of contrast were used. Dr. Manzo was present and scrubbed for all critical parts of the procedure. I attest to the content of the Intraoperative Record and any orders documented therein. Any exceptions are noted below.
[2023-11-03] MEDS ORDERED: ATROPINE SULFATE 0.4 MG/ML 2ML SYR IV ONE (12:42)
[2023-11-03] MEDS: ceFAZolin 330 MG/ML 1 GM VIAL ONE (13:19)
[2023-11-03] MEDS: THROMBIN FOR SOLN 20000 UNIT KIT ONE (13:19)
[2023-11-03] MEDS: GELATIN SPONGE SZ 100 ONE (13:19)
[2023-11-03] MEDS: BUPIVACAINE/EPINEPHRINE 0.5% MPF 1:200,000 30 ML VIAL ONE (13:19)
--- NOTE | 2023-11-03 13:28 | Anesthesiology Progress Note ---
Date of Service November 03, 2023 Anesthesia Post Procedure Vital Signs Vital Signs: Temp Pulse Pulse Resp BP Pulse Ox O2 Del Method 11/03/23 13:15 79 15 118/54 L 100 Oxymask 11/03/23 13:05 36.1 C L 72 15 112/60 100 Oxymask 11/03/23 12:55 68 14 121/46 L 100 Oxymask 11/03/23 12:45 71 15 130/56 L 100 Oxymask 11/03/23 12:35 78 18 123/52 L 96 Oxymask 11/03/23 12:27 36.0 C L 73 19 126/60 100 Oxymask 11/03/23 07:32 36.9 C 92 H 18 133/71 97 Room Air O2 Flow Rate 11/03/23 13:15 5 11/03/23 13:05 5 11/03/23 12:55 5 11/03/23 12:45 5 11/03/23 12:35 5 11/03/23 12:27 5 11/03/23 07:32 Transfer of Care Handoff Completed per policy Notes Mental Status: alert / awake / arousable and participated in evaluation Patient Amnestic to Procedure: Yes Nausea / Vomiting: adequately controlled Pain: adequately controlled Airway Patency, RR, SpO2: stable & adequate BP & HR: stable & adequate Hydration State: stable & adequate Anesthetic Complications: no major complications apparent and Pt Satisfied with anesthetic care
[2023-11-03] MEDS ORDERED: STAT IV Infusion **Titration per Protocol STA (13:44)
[2023-11-03] MEDS ORDERED: oxyCODONE/ACETAMINOPHEN 5mg/325mg TAB PO PRN (13:44)
[2023-11-03] MEDS ORDERED: PHENYLEPHRINE/NSS 25 MG/250 ML BAG IV PRN (13:44)
[2023-11-03] MEDS ORDERED: BRILINTA PO SCH (13:44)
[2023-11-03] MEDS ORDERED: PANTOprazole 40 MG TAB PO PRN (13:55)
--- NOTE | 2023-11-03 14:54 | Critical Care Consultation ---
Date of Consultation November 03, 2023 Assessment & Plan (1) Carotid stenosis, bilateral: (2) History of transcarotid artery revascularization (TCAR): (3) Heart failure: (4) Type 2 diabetes mellitus: (5) Hypertension: (6) Hyperlipidemia: (7) Anemia: (8) GERD (gastroesophageal reflux disease): Plan 1) S/p TCAR - patient w/out any concerns after procedure Pain control - Percocet (5/325 mg), PO, q4hrs - Tylenol, 500 mg, PO, q6hrs Infection prophylaxis - Clindamycin, 600 mg, IV, q8hrs S/p carotid stent - aspirin, 81 mg, PO, daily - Brilinta, 90 mg, PO, daily 2) Bradycardia - patient w/ HR's intermittently noted in 50s after TCAR procedure - will continue all meds, consider replacing carvedilol in outpatient setting 3) HTN - continue carvedilol, 6.25 mg, PO, BID 4) HLD - continue simvastatin, 20 mg, PO, daily 5) T2DM - continue glimepiride, 2 mg, PO, daily 6) CHF - furosemide, 40 mg, PO, QAM 7) GERD - omeprazole, 40 mg, PO, daily 8) Anemia - Hgb, 10.0 upon admission - 2 units of leukocyte-reduced pRBCs ordered, but not given - CBC AM lab ordered Code status: Full code Disposition: ICU Diet: Heart healthy Supervising Physician Co-Signing Physician Notes Patient seen and examined. EMR reviewed. Discussed with patient bedside critical care nurse as well as with family practice resident. Agree with assessment plan as noted. Status post TCAR. Hemodynamically stable. Neurologically intact. Will continue to monitor overnight. Patient's remaining critical care issues been well addressed by the vascular surgery service. History of Present Illness Reason for Consultation: S/P TCAR (total carotid artery revascularization) Attending Physician: Maulik Manzo MD History of Present Illness Patient is a 78 yo F w/ a PMHx of bilateral carotid artery stenosis, chronic sinusitis, pulm HTN, CHF (EF 70-75%), T2DM, aortic stenosis, mitral valve stenosis, HTN, HLD, GERD, anemia who is admitted to the ICU today following right-sided TCAR. Patient has no acute concerns and specifically denies any increased fatigue, JARAMILLO, N/V/AP, numbness or tingling, CP or palpitations, dysphagia or dysphonia, or vision concerns (including diplopia, decreased visual acuity). Allergies Allergy/AdvReac Type Severity Reaction Status Date / Time cefadroxil Allergy Gastrointestinal Verified 11/03/23 07:29 Upset ciprofloxacin [From Cipro] Allergy hives, Verified 11/03/23 07:29 shortness of breath cortisone Allergy passed out Verified 11/03/23 07:29 digoxin Allergy confusion, Verified 11/03/23 07:29 light headed Iodinated Contrast Media Allergy Gastrointestinal Verified 11/03/23 07:29 Upset lisinopril Allergy confusion, Verified 11/03/23 07:29 light headed silver Allergy Rash Verified 11/03/23 07:29 Sulfa (Sulfonamide Allergy makes her Verified 11/03/23 07:29 Antibiotics) anxious Home Medications Medication Instructions Recorded Confirmed Type ascorbic acid (vitamin C) 500 mg 500 mg PO QAM 02/10/23 11/03/23 History tablet (Vitamin C) aspirin 81 mg capsule 81 mg PO QAM 02/10/23 11/03/23 History carvedilol 6.25 mg tablet 6.25 mg PO BID 02/10/23 11/03/23 History glimepiride 4 mg tablet 2 mg PO QAM 02/10/23 11/03/23 History omeprazole 40 mg capsule,delayed 40 mg PO DAILY PRN Acid Reflux 02/10/23 11/03/23 History release simvastatin 20 mg tablet 20 mg PO QAM 02/10/23 11/03/23 History Brilinta 1 dose PO UD 10/22/23 11/03/23 History furosemide 40 mg tablet (Lasix) 40 mg PO QAM 10/22/23 11/03/23 History Patient History Medical History Aplastic anemia following with Dr. 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 Cornelius Renal insufficiency Cr improved since 01/2023 cardio note Syncope hx, last episode 11/2022 attributed to severe anemia per pt-denies additional episodes since transfusion Heart failure EF 70-75% Type 2 diabetes mellitus NIDDM History of blood transfusion 11/2022, most recent 06/2023 Tricuspid regurgitation moderate Severe mitral valve stenosis Aortic stenosis moderate (MALINI 1.5 cm2, mean systolic gradient 19 mmHg); follows with Dr. Cornelius in [place] History of skin cancer 2018, removed from under right side of jaw History of left shoulder fracture 2015, still has "very" limited mobility in this arm/shoulder, no sx to correct-just immobilization Limb alert care status left arm Hx of breast cancer left, dx 2013, s/p surgery + 30 days xrt Hypertension stable per pt Anemia Hgb 9.7, unknown cause of anemia per cardio records, 7 on pre-op labs -- following with Dr. Mckinley Hyperlipidemia GERD (gastroesophageal reflux disease) controlled, stable per pt Surgical History Slow to wake up after anesthesia Hx of tooth extraction Hx of colonoscopy History of cardiac cath 2012- no stents Hx of exploratory laparotomy age 21, for removal benign mass and appendix Hx of bilateral cataract extraction History of mastectomy left breast, w/removal 9 lymph nodes; left arm limb restriction Family History Sister Family history of reaction to anesthesia "slow to wake up" Family/Other Family history of reaction to anesthesia cousin - "slow to wake up" Social History Smoking Status: Never smoker Second Hand Exposure: No; Do You Dip or Chew Tobacco: No; Tobacco Cessation Education Requested by Patient: No Hx Alcohol Use: No Hx Substance Use: No Preferred Language: Turkmen Communication Ability: Effective Forging Dies Final Finisher Required: No Beliefs That Will Affect Care: None Current Living Situation: Significant Other Other Information That Helps Us Care for You: No Feels Safe at Home: Yes Safety Concerns: Feels Safe At This Time Assistive Devices: Denture - Upper, Denture - Lower and Glasses Review of Systems Constitutional: no fever, no chills, no fatigue and no weakness Respiratory: no cough and no dyspnea Cardiovascular: no chest pain and no palpitations Gastrointestinal: no abdominal pain, no nausea and no vomiting Neurologic: no tingling, no numbness, no headache(s) and no confusion Physical Exam Constitutional: WD/WN, vitals as above Respiratory: normal respiratory effort, lungs clear to auscultation Cardiovascular: Rate/Rhythm: regular rate and regular rhythm Heart Sounds: + murmur (heard over r. and l. upper sternal border) Extremities: normal capillary refill; no calf tenderness and no pedal edema Gastrointestinal (Abdomen): normal bowel sounds, soft, nontender, no hepatosplenomegaly Neurologic: moves all extremities and awake Speech / Cognition: normal speech, no anomia, no expressive aphasia, no receptive aphasia and normal cognition Cranial Nerves: PERRL, normal accommodation, EOM intact bilaterally, normal facial strength, tongue midline and able to elevate shoulders bilaterally Psychiatric: A+Ox3, euthymic affect Results & Data Results & Data Vital Signs (Past 12 Hours) Vital Signs Temp Pulse Pulse Pulse Resp BP BP 11/03/23 14:30 106/49 L 11/03/23 14:30 57 L 16 11/03/23 14:15 77 21 11/03/23 14:00 102/51 L 11/03/23 13:57 68 16 11/03/23 13:30 106/50 L 11/03/23 13:30 73 15 11/03/23 13:15 79 15 118/54 L 11/03/23 13:05 36.1 C L 72 15 112/60 11/03/23 12:55 68 14 121/46 L 11/03/23 12:45 71 15 130/56 L 11/03/23 12:35 78 18 123/52 L 11/03/23 12:27 36.0 C L 73 19 126/60 11/03/23 07:32 36.9 C 92 H 18 133/71 Pulse Ox O2 Del Method O2 Flow Rate 11/03/23 14:30 11/03/23 14:30 94 Room Air 11/03/23 14:15 95 Room Air 11/03/23 14:00 11/03/23 13:57 93 Room Air 11/03/23 13:30 11/03/23 13:30 95 Room Air 11/03/23 13:15 100 Oxymask 5 11/03/23 13:05 100 Oxymask 5 11/03/23 12:55 100 Oxymask 5 11/03/23 12:45 100 Oxymask 5 11/03/23 12:35 96 Oxymask 5 11/03/23 12:27 100 Oxymask 5 11/03/23 07:32 97 Room Air
[2023-11-03] MEDS: LACTATED RINGER'S 1,000 ML IV SCH (15:09)
[2023-11-03] MEDS ORDERED: ACETAMINOPHEN 500 MG TAB PO PRN (15:19)
--- NOTE | 2023-11-03 15:45 | Billing Data ---
Date of Service November 03, 2023 Coding Level of Care Code 25358 IN/OBS CONSULT LVL 3,45M
[2023-11-03] MEDS: carvediloL 6.25 MG TAB PO SCH (17:54)
[2023-11-03] MEDS: CLINDAMYCIN/D5W 600 MG/50 ML BAG IV SCH (19:33)
[2023-11-03] MEDS: TICAGRELOR 90 MG TAB PO SCH (20:16)
[2023-11-04 05:01] LABS: Hematocrit (blood only) 26.2 % (37.0-47.0); Hemoglobin 7.9 g/dl (12.0-16.0); Mean Corpuscular Hemoglobin 24.9 pg (25.0-34.0); Mean Corpuscular Hgb Conc 30.2 g/dL (32.0-36.0); Mean Corpuscular Volume 82.6 fL (80.0-100.0); Mean Platelet Volume 8.6 fL (9.4-12.4); Platelet Count 368 K/uL (130-400); RDW Coefficient of Variation 16.4 % (11.5-14.5); RDW Standard Deviation 49.8 fL (36.4-46.3); Red Blood Count 3.17 M/uL (4.20-5.40); White Blood Count 13.48 K/ul (4.8-10.8)
[2023-11-04] MEDS ORDERED: SODIUM CHLORIDE 0.9% 250 ML IV PRN (07:58)
--- NOTE | 2023-11-04 08:29 | Critical Care Progress Note ---
Date of Service November 04, 2023 Assessment & Plan (1) Carotid stenosis, bilateral: (2) History of transcarotid artery revascularization (TCAR): (3) Heart failure: (4) Type 2 diabetes mellitus: (5) Hypertension: (6) Hyperlipidemia: (7) Anemia: (8) GERD (gastroesophageal reflux disease): Plan 1) S/p TCAR - patient w/out any concerns morning after procedure, mild tenderness of incision site w/ palpation Pain control - Percocet (5/325 mg), PO, q4hrs - Tylenol, 500 mg, PO, q6hrs Infection prophylaxis - Clindamycin, 600 mg, IV, q8hrs S/p carotid stent - aspirin, 81 mg, PO, daily - Brilinta, 90 mg, PO, daily 2) Bradycardia - patient w/ HR's intermittently noted in 50s after TCAR procedure - will continue all meds, consider replacing carvedilol in outpatient setting 3) HTN - continue carvedilol, 6.25 mg, PO, BID 4) HLD - continue simvastatin, 20 mg, PO, daily 5) T2DM - continue glimepiride, 2 mg, PO, daily 6) CHF - furosemide, 40 mg, PO, QAM 7) GERD - omeprazole, 40 mg, PO, daily 8) Anemia - Hgb, 7.9 <-- 10.0 (upon admission) - 2 units of leukocyte-reduced pRBCs ordered, available - patient w/ chronic moderate anemia, no acute concerns including no dyspnea, CP, numbness/tingling, tachycardia - Dr. Manzo likely will give 1 units of pRBCs to the patient later today Code status: Full code Disposition: ICU Diet: Heart healthy Admission and Anticipated Discharge Date Admission Date: November 03, 2023 Supervising Physician Co-Signing Physician Notes Patient seen and examined. EMR reviewed. Discussed with overnight critical care LUIS ALBERTO as well as with family practice resident, bedside nurse, and on multidisciplinary rounds. The patient is doing well clinically. She is neurovascularly intact. Her blood pressures been reasonably well-controlled although carvedilol was held. She is receiving 1 unit of packed cells this morning after discussion with her outpatient housekeeping assistant and vascular surgeon. The patient's critical care issues are resolved. Will discontinue her arterial monitoring and defer disposition to vascular surgery. Feel free to contact us with additional questions or concerns Subjective Patient feels subjectively well this morning, same as yesterday, with no pressing acute concerns. Patient does acknowledge feeling a minor sore throat this morning, felt when eating her breakfast, but that is only complaint. Specifically denies any vision changes, JARAMILLO, dyspnea or CP or palpitations, AP/N/V, dysphagia or dysphonia; endorses only mild tenderness over collarbone area but no restricted motion of neck. Review of Systems Constitutional: no fever, no chills, no fatigue and no weakness Respiratory: no cough and no dyspnea Cardiovascular: no chest pain and no palpitations Gastrointestinal: no abdominal pain, no nausea and no vomiting Neurologic: no tingling, no numbness, no headache(s) and no confusion Physical Exam Constitutional: WD/WN, vitals as above Neck: trachea midline; + abnormal visual inspection (bruising noted over r. collarbone area) and neck nontender Respiratory: normal respiratory effort, lungs clear to auscultation Cardiovascular: Rate/Rhythm: regular rate and regular rhythm Heart Sounds: + murmur (heard over r. and l. upper sternal border) Extremities: normal capillary refill; no calf tenderness and no pedal edema Gastrointestinal (Abdomen): normal bowel sounds, soft, nontender, no hepatosplenomegaly Neurologic: moves all extremities and awake Speech / Cognition: normal speech, no anomia, no expressive aphasia, no receptive aphasia and normal cognition Cranial Nerves: PERRL, normal accommodation, EOM intact bilaterally, normal facial strength, tongue midline and able to elevate shoulders bilaterally Psychiatric: A+Ox3, euthymic affect Results & Data Results & Data Vital Signs (Past 12 Hours) Vital Signs Pulse Resp BP Pulse Ox O2 Del Method 11/04/23 06:03 48 L 17 94 Room Air 11/04/23 05:39 50 L 17 95 11/04/23 05:12 50 L 17 92 Room Air 11/04/23 04:01 48 L 18 95/57 L 96 Room Air 11/04/23 03:39 56 L 16 94 Room Air 11/04/23 03:33 121/43 L 11/04/23 03:18 52 L 19 95 Room Air 11/04/23 02:39 56 L 18 111/42 L 97 Room Air 11/04/23 02:18 58 L 19 106/43 L 93 Room Air 11/04/23 01:51 54 L 20 107/48 L 95 11/04/23 01:36 53 L 20 94 Room Air 11/04/23 01:27 49 L 20 105/42 L 95 Room Air 11/04/23 01:00 60 20 94/52 L 95 Room Air 11/04/23 00:42 55 L 16 97 Room Air 11/04/23 00:27 50 L 14 104/45 L 96 Room Air 11/04/23 00:00 60 19 98 Room Air 11/04/23 00:00 46 L 11/03/23 23:30 49 L 18 102/53 L 96 Room Air 11/03/23 22:54 56 L 19 103/43 L 96 Room Air 11/03/23 22:45 35 L 15 95 11/03/23 22:01 47 L 108/44 L 11/03/23 21:27 55 L 18 117/40 L 96 Room Air 11/03/23 20:57 60 23 95/40 L 96 Room Air 11/03/23 20:27 61 18 100/42 L 95 Room Air
[2023-11-04] MEDS: ASCORBIC ACID 500 MG TAB PO SCH (08:53)
[2023-11-04] MEDS: SIMVASTATIN 20 MG TAB PO SCH (08:53)
[2023-11-04] MEDS: GLIMEPIRIDE 2 MG TAB PO SCH (08:53)
[2023-11-04] MEDS: ASPIRIN 81 MG ECTAB PO SCH (08:53)
[2023-11-04] MEDS: FUROSEMIDE 40 MG TAB PO SCH (08:53)
--- NOTE | 2023-11-04 10:10 | Billing Data ---
Date of Service November 04, 2023 Coding Level of Care Code 09882 SUB INP/OBS CARE
[2023-11-04 10:34] VITALS: TEMP 98.1
[2023-11-04 11:32] VITALS: RESP 18; O2SAT 95
--- NOTE | 2023-11-04 13:10 | Surgery Progress Note ---
Date of Service November 04, 2023 Assessment & Plan (1) Carotid stenosis, bilateral: Plan: POD#1 from a left tcar. No problems post op. Will D/C today. Admission and Anticipated Discharge Date Admission Date: November 03, 2023 Subjective Patient without complaints Physical Exam Constitutional: WD/WN, vitals as above Neck: trachea midline Respiratory: normal respiratory effort; no respiratory distress Cardiovascular: Rate/Rhythm: regular rate and regular rhythm Skin: + incision (incision dry and clean) Neurologic: CN's II-XI intact bilaterally and moves all extremities Results & Data Vital Signs (Past 12 Hours) Vital Signs Temp Pulse Resp BP Pulse Ox O2 Del Method 11/04/23 11:10 36.7 C 72 18 113/67 95 11/04/23 10:17 36.7 C 56 L 12 109/43 L 96 11/04/23 09:47 36.5 C 64 22 109/46 L 95 11/04/23 09:32 36.5 C 63 19 120/47 L 93 11/04/23 09:15 36.5 C 65 15 105/49 L 95 11/04/23 09:03 64 19 95 11/04/23 08:00 57 L 11/04/23 07:57 76 17 117/53 L 95 11/04/23 07:12 45 L 18 94 Room Air 11/04/23 06:03 48 L 17 94 Room Air 11/04/23 05:39 50 L 17 95 11/04/23 05:12 50 L 17 92 Room Air 11/04/23 04:01 48 L 18 95/57 L 96 Room Air 11/04/23 03:39 56 L 16 94 Room Air 11/04/23 03:33 121/43 L 11/04/23 03:18 52 L 19 95 Room Air 11/04/23 02:39 56 L 18 111/42 L 97 Room Air 11/04/23 02:18 58 L 19 106/43 L 93 Room Air 11/04/23 01:51 54 L 20 107/48 L 95 11/04/23 01:36 53 L 20 94 Room Air 11/04/23 01:27 49 L 20 105/42 L 95 Room Air
--- NOTE | 2023-11-04 13:15 | Discharge Summary ---
Date of Service November 04, 2023 Admission HPI Per Admitting Provider I had the pleasure of seeing Lanre for follow-up. As you know she is a 78-year-old female who has severe stenosis of her bilateral internal carotid arteries. She is approximately 80% plus on the left and 90% plus on the right. She is asymptomatic from both lesions. She does have a chronic anemia and being worked up by hematology. She has had 6 transfusions this year. Her hemoglobin still lives in the 8 range. At that that level she is still asymptomatic. Admission Exam Per Admitting Provider On exam today she is awake alert oriented x 3. She is in no apparent distress. Her blood pressure is 118/54. Her radial carotids are +2 bilaterally. Femorals are +2 bilaterally. She has good capillary refill. Upper extremity with good blanching of the finger nailbeds. She is slightly on the pale side however her lip and conjunctiva are pink. Lungs are clear. Heart has a RRR. Abominal exam is benign. Neuro exam is intact. Principal Diagnosis Bilateral carotid artery stenosis Discharge Exam On exam today she is awake alert oriented x 3. She is in no apparent distress. Her blood pressure is 118/54. Her radial carotids are +2 bilaterally. Femorals are +2 bilaterally. She has good capillary refill. Upper extremity with good blanching of the finger nailbeds. She is slightly on the pale side however her lip and conjunctiva are pink. Lungs are clear. Heart has a RRR. Abominal exam is benign. Neuro exam is intact. Constitutional WD/WN, vitals as above Neck trachea midline Respiratory normal respiratory effort; no respiratory distress Cardiovascular Rate/Rhythm: regular rate and regular rhythm Skin + incision (incision dry and clean) Neurologic CN's II-XI intact bilaterally and moves all extremities Discharge Data Allergies Allergy/AdvReac Type Severity Reaction Status Date / Time cefadroxil Allergy Gastrointestinal Verified 11/03/23 07:29 Upset ciprofloxacin [From Cipro] Allergy hives, Verified 11/03/23 07:29 shortness of breath cortisone Allergy passed out Verified 11/03/23 07:29 digoxin Allergy confusion, Verified 11/03/23 07:29 light headed Iodinated Contrast Media Allergy Gastrointestinal Verified 11/03/23 07:29 Upset lisinopril Allergy confusion, Verified 11/03/23 07:29 light headed silver Allergy Rash Verified 11/03/23 07:29 Sulfa (Sulfonamide Allergy makes her Verified 11/03/23 07:29 Antibiotics) anxious Consultations 11/03/23 13:44 Consult [employer] Law Professor Routine Procedures Performed Operation Date: 11/03/23 10:10 Actual Procedures p Right Transcarotid Artery Revascularization, ultrasound right common femoral vein (Right) - Maulik Manzo MD Ordered Studies 11/03/23 07:08 EV angio carotid cerv RT Routine US EV guide vascular access Routine Hospital Course (1) Carotid stenosis, bilateral: POD#1 from a left tcar. No problems post op. Will D/C today. Total Time Total Time Spent Total Time Spent (In Minutes): 0 Discharge Plan Discharge Items Patient Disposition: Home - Self-Care Reason For Visit: Bilateral Carotid artery Stenosis Discharge Diagnosis: Left internal carotid artery stenosis Activity: Per Instructions section Non-emergency contact: Surgeon Call non-emergency contact if: your temperature is above 101.5, your wound has increased redness, your wound has increased drainage and your wound pain has increased Follow-up/Referrals: London Garrison [Primary Care Provider] - Diet: Heart Healthy Addtl Attending Provider Instructions: SPECIAL CARE INSTRUCTIONS: Medications: * Continue to take Aspirin, Brilinta, and statin as directed. Incision Care: * You may shower, but do not rub incision. You may let the warm soapy water run over it. Be sure to dry the incision well after bathing. * Do not shave directly over the incision until it is healed. * DO NOT IMMERSE THE INCISION IN A TUB/POOL/etc. UNTIL HEALED. Restrictions: * Do not drive for at least one week or if you are still taking any narcotic pain medication. * Do not lift anything heavier than a gallon of milk for one week after going home. Possible Complications: * Numbness - It is normal to have some numbness around the incision. Numbness can extend beyond the incision to areas of the neck, ear and face. The numbness is due to bruising of nerves during the surgery and will gradually improve over a period of months. * Hoarseness/Difficulty Speaking and Swallowing - The bruising of nerves in the neck can also cause a hoarse voice, difficulty speaking or swallowing. This may improve over time, HOWEVER, if it continues for more than a few days please contact our office ([phone]). * Excessive Swelling - There will be some swelling immediately after surgery which usually resolves within one week. If you notice that the swelling is getting worse, notify your surgeon ([phone]). * Drainage/Bleeding - If there is any drainage or bleeding, it should be a very small amount (less than a teaspoon per day). If you have excessive bleeding or drainage from the incision, call your surgeon ([phone]) right away. ACTIVATION OF EMERGENCY MEDICAL SYSTEM: Call 911, immediately, if you experience any of the following: Warning Signs and Symptoms of Stroke: * Sudden numbness or weakness of the face, arm or leg, especially on one side of the body * Sudden confusion, trouble speaking or understanding * Sudden trouble seeing in one or both eyes * Sudden trouble walking, dizziness, loss of balance or coordination * Sudden severe headache with no cause Do not delay calling 911 if you experience any warning signs or symptoms of a stroke. Delay in seeking medical attention may affect what treatments can be given to you. Risk Factors for Stroke: You can reduce your chances of stroke by working with your medical provider to adopt a healthy lifestyle. Some specific ways to lower your chance of stroke are: * If you are a smoker, now is the time to stop smoking cigarettes * If you are diabetic, improve the control of your blood sugars * Avoid excessive amounts of alcohol * Control high blood pressure * Lose weight if you are overweight * Be sure to lead an active lifestyle * Eat a healthy diet low in salt, cholesterol and fat You should know about other risk factors for stroke that you are unable to control. These include: * Age 55 years or older * Male gender * Certain racial groups: , or / * Family History of Stroke, Mini stroke or Heart Attack * Sickle Cell Disease You will be receiving a call from the Vascular Surgery Nurse after you are discharged. FOLLOW UP VISIT: It is important for you to keep your follow up appointments with your medical provider. Keep any scheduled doctor appointments. Call [phone] to schedule a follow up appointment if one not already scheduled. Pending Studies at Discharge: No Stand-Alone Forms: My [employer], Smoking Cessation Medications and DC Order Prescriptions: New oxycodone 5 mg tablet 5 mg PO Q8H PRN (Reason: pain) Qty: 10 0RF Continued carvedilol 6.25 mg Tablet 6.25 mg PO BID Rx Instructions: must administer with a meal/food omeprazole 40 mg Capsule,Delayed Release(Dr/Ec) 40 mg PO DAILY PRN (Reason: Acid Reflux) ascorbic acid (vitamin C) [Vitamin C] 500 mg Tablet 500 mg PO QAM simvastatin 20 mg Tablet 20 mg PO QAM glimepiride 4 mg Tablet 2 mg PO QAM aspirin 81 mg Capsule 81 mg PO QAM furosemide [Lasix] 40 mg Tablet 40 mg PO QAM Brilinta 1 dose PO UD Discharge Orders: Discharge Order (Routine); Ordered 11/04/23 Ordered By: Maulik Manzo Admission Data Admit Date/Time: 11/03/23 07:40 Attending Provider: Maulik Manzo Admit Provider: Maulik Manzo Primary Care Provider: London Garrison Other Providers: Ranjith Hendrix; Renny Zheng; Shashank Bianchi; Philip Jones; Jony Jean-Baptiste; Jose Gamboa; Devan Moncada; Sarah Lawrence; Sailaja Patterson; Raudel Kent; Gareth Anton; Zehra Sánchez
[2023-11-04 13:30] VITALS: BP 124/65; PULSE 78
--- NOTE | 2023-11-05 06:23 | Coding Query ---
CONGESTIVE HEART FAILURE To Promote full compliance with coding requirements relating to patient care, physician participation is requested in all cases of supervisor sewing room uncertainty. Please assist us with the following questions. A diagnosis of Congestive Heart Failure is documented in the patient's medical record. To accurately code this diagnosis and to compare patient severity, we ask that you specify the type of heart failure by placing an X within the parenthesis (x). Pt with a history of CHF (EF 70-75%) HTN, anemia, perioperative treatment CXR,PO Lasix ,I&O . SYSTOLIC HEART FAILURE ( ) Acute ( ) Chronic ( ) Acute on Chronic ( ) Rheumatic (x ) Unknown DIASTOLIC HEART FAILURE ( ) Acute ( ) Chronic ( ) Acute on Chronic ( ) Rheumatic (x ) Unknown COMBINED SYSTOLIC AND DIASTOLIC HEART FAILURE ( ) Acute ( ) Chronic ( ) Acute on Chronic ( ) Rheumatic ( x) Unknown Was the CHF Present On Admission? Please check the appropriate box: ( ) Present on Admission ( ) Not Present On Admission (x ) Clinically undetermined Thank you JOSE Chavarria [facility]ASHINGTON[facility]irsten
== END 2023-11-04 14:04 | disposition home or self-care (01) | DRG 36 ==
LOC: ASU 06:39 → 1E 07:40
PROC: EV.TCAR (2023-11-03 10:10)
DX: K21.9 Gastro-esophageal reflux disease without esophagitis; Z79.84 Long term (current) use of oral hypoglycemic drugs; D64.9 Anemia, unspecified; Z88.2 Allergy status to sulfonamides; I65.21 Occlusion and stenosis of right carotid artery; Z91.041 Radiographic dye allergy status; R00.1 Bradycardia, unspecified; Z79.82 Long term (current) use of aspirin; Z88.1 Allergy status to other antibiotic agents; I11.0 Hypertensive heart disease with heart failure; E11.9 Type 2 diabetes mellitus without complications; I50.9 Heart failure, unspecified; E78.5 Hyperlipidemia, unspecified